=== PATIENT | male | born 1940 | race Caucasian/White ===

== ENCOUNTER 2018-03-08 12:25 | Emergency (ER) | payer OTHER ==
[2018-03-08 12:31] VITALS: BP 157/76; PULSE 80; TEMP 99; BMI 23.5
--- NOTE | 2018-03-08 12:51 | PDOC ---
Attending Attestation - Resident Resident Name: Neo Will - ED Attending Attestation I have performed the following: I have examined & evaluated the patient, The case was reviewed & discussed with the resident, I agree w/resident's findings & plan, Exceptions are as noted - HPI HPI: 03/08/18 12:47 77 yo male with h/o htn here with c/o facial swelling that happen 2 days ago. denies n/v no sob. took claritin and benadryl has since improved. now feels better. no new foods or lotions. no new meds. did happen once before few months ago. - Physicial Exam PE: 03/08/18 12:49 awake alert mouth, no tongue or lip swelling. uvula midline, no edema. no stridor. lungs clear bilaterally heart rrr no mrg abd soft nt nd. ext wwp. skin warm and dry. no rash. - Medical Decision Making 03/08/18 12:50 plan allergic reaction resolve , plan to dc with epe pen, will refer back to pcp to discuss ARB. unlikely due to ARB or angioedema and his sxs spont resolved. also educated to come immediately if happens again. currently axs with no intervention will dc home.
--- NOTE | 2018-03-08 12:53 | PDOC ---
History of Present Illness - General Chief Complaint: Edema Stated Complaint: RT FACIAL SWELLING, ITCHY Time Seen by Provider: 03/08/18 12:29 - History of Present Illness Initial Comments: 03/08/18 12:41 77 yo M with HTN, and and open heart surgery (valve replacement, 2010) who p/w complaint of facial swelling, and burning. Patient Georgian speaking. 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 Symptoms improved with OTC Diphehydramine and Loratidine. Mild burning of R sided face persists. Patient denies tongue swelling, stridor, cough, inability to tolerate secretions, muffled voice, hoarseness, sore throat, cough, wheezing , Denies recent topical exposure of new detergents, emollients, lotions, soaps, clothing, or bedding. Patient reports similar h/o symptoms x 1-2 months ago with BL facial involvement. Resolved spontaneously. Patient on Losartan daily for 8 years. Denies h/o anaphylaxis, epipen use, h/o intubation, or ICU stay. Patient denies N/V, F,C, tinnitus, hearing complaints, CP, SOB, urinary complaints, abdominal pain, diarrhea, constipation, lightheadedness, weakness, sensory changes. PMHx: as noted above ROS: as noted SHx: Denies Allergies: NKDA Past History - Past Medical History Allergies/Adverse Reactions: Allergies Allergy/AdvReac Type Severity Reaction Status Date / Time No Known Allergies Allergy Verified 03/08/18 12:27 Home Medications: Ambulatory Orders Aspirin [ASA -] 81 mg PO DAILY 01/18/15 Losartan Potassium 100 mg PO DAILY 01/18/15 Cholesterol Pill 1 tab PO DAILY 03/08/18 Cardiac Disorders: Yes (CAD) COPD: No HTN: Yes Hypercholesterolemia: Yes - Surgical History Cardiac Surgery: Yes (Open Heart) - Suicide/Smoking/Psychosocial Hx Smoking History: Never smoked Have you smoked in the past 12 months: No Hx Alcohol Use: No Drug/Substance Use Hx: No Review of Systems - Review of Systems Comments:: 03/08/18 12:53 GENERAL/CONSTITUTIONAL: No fever or chills. No weakness. HEAD, EYES, EARS, NOSE AND THROAT: No change in vision. No ear pain or discharge. No sore throat. CARDIOVASCULAR: No chest pain or shortness of breath RESPIRATORY: No cough, wheezing, or hemoptysis. GASTROINTESTINAL: No nausea, vomiting, diarrhea or constipation. GENITOURINARY: No dysuria, frequency, or change in urination. MUSCULOSKELETAL: No joint or muscle swelling or pain. No neck or back pain. SKIN: + R sided facial burning. No rash NEUROLOGIC: No headache, vertigo, loss of consciousness, or change in strength/ sensation. ENDOCRINE: No increased thirst. No abnormal weight change HEMATOLOGIC/LYMPHATIC: No anemia, easy bleeding, or history of blood clots. ALLERGIC/IMMUNOLOGIC: No hives or skin allergy. *Physical Exam - Vital Signs Last Vital Signs Temp Pulse Resp BP Pulse Ox 99 F 80 16 157/76 99 03/08/18 12:25 03/08/18 12:25 03/08/18 12:25 03/08/18 12:25 03/08/18 12:25 - Physical Exam Comments: 03/08/18 12:53 GENERAL: Awake, alert, and fully oriented, in no acute distress HEAD: No signs of trauma, normocephalic, atraumatic EYES: PERRLA, EOMI, sclera anicteric, conjunctiva clear ENT: Uvula midline intact. Auricles normal inspection, hearing grossly normal, nares patent, oropharynx clear without exudates. Moist mucosa NECK: Normal ROM, supple, no lymphadenopathy, JVD, or masses LUNGS: No distress, speaks full sentences, clear to auscultation bilaterally HEART: Regular rate and rhythm, normal S1 and S2, no murmurs, rubs or gallops, peripheral pulses normal and equal bilaterally. ABDOMEN: Soft, nontender, normoactive bowel sounds. No guarding, no rebound. No masses EXTREMITIES : Normal inspection, Normal range of motion, no edema. No clubbing or cyanosis. NEUROLOGICAL: Cranial nerves II through XII grossly intact. 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 VSS, AF, A&Ox3. No evidence of airway/respiratory compromise. Absent mucosal edema, uvulua deviation or swelling, tongue swelling, stridor, hoarseness, wheezing, urticarial reaction, eye involvement. Patient s/s likely attributed to acute hypersensitivity reaction, now resolved. Neurologically intact, face symmetric appearing, absent vesicular rash. Low suspicion CVA/TIA, [place] palsy, VZV, PHN, Harry Figueroa Syndrome. ED Course: Patient counseled on anaphylaxis precautions. Advised to return to ED with similar symptoms immediately. Patient stable for d/c with return precautions. Advised to f/u with PMD. *DC/Admit/Observation/Transfer Diagnosis at time of Disposition: Facial burning - Discharge Dispostion Disposition: HOME Condition at time of disposition: Stable Decision to Admit order: No - Referrals Referrals: Onur Devi [Primary Care Provider] - - Patient Instructions Printed Discharge Instructions: DI for General Allergic Reactions, DI for Anaphylaxis Additional Instructions: Please return to the emergency department with any new or worsening symptoms or concerns. Please follow up with your primary care physician within 72 hours. Please be advised to product picker epinephrine pen from pharmacy, with instructions on proper use. - Post Discharge Activity - Attestations Physician Attestion: 03/08/18 12:59 I attest to the information provided in this note.
== END 2018-03-08 13:05 | disposition home or self-care (01) ==
LOC: FER 12:25
DX: R20.8 Other disturbances of skin sensation (principal); I10 Essential (primary) hypertension; Z95.2 Presence of prosthetic heart valve; E78.00 Pure hypercholesterolemia, unspecified
CPT/HCPCS: 99284-25